=== PATIENT | female | born 1960 | race Caucasian/White ===

== ENCOUNTER 2016-11-02 17:06 | Inpatient (IN) | payer OTHER ==
[~2016-11-02] VITALS: Ht 160 cm; Wt 36.5 kg
[~2016-11-02 17:06] MED LIST: ALD25 PO; GAMMAGARD IV; MESTINON PO
[2016-11-02] MEDS ORDERED: [UNRECOGNIZED DRUG - OTHER] (17:37)
[2016-11-02] MEDS ORDERED: [UNRECOGNIZED DRUG - OTHER] (17:37)
[2016-11-02] MEDS ORDERED: MYCOC TOP (17:38)
[2016-11-02] MEDS ORDERED: TYLENOL (17:38)
[2016-11-02 17:52] LABS: BASOPHIL % 0.3 % (0-2)
[2016-11-02 17:58] LABS: CALCIUM 9.2 mg/dL (8.5-10.1); CARBON DIOXIDE 29.7 mmol/L (21-32); CHLORIDE SERUM 97 mmol/L (98-107); CREATININE SERUM 0.8 mg/dL (0.6-1.0); GFR1 > 60 mL/min; GLUCOSE SERUM 173 mg/dL (74-106); POTASSIUM SERUM 4.1 mmol/L (3.5-5.1); SODIUM SERUM 136 mmol/L (136-145)
[2016-11-02 18:00] LABS: PLATELET COUNT 549 x10^3mcL (130-400); RED CELL DISTRIBUTION WIDTH 18.2 % (11.5-14.5)
[2016-11-02 18:03] LABS: ALBUMIN 2.6 g/dL (3.4-5.0); ALKALINE PHOSPHATASE 127 U/L (46-116); ALT/SGPT 17 U/L (14-59); AST/SGOT 52 U/L (15-37); BILIRUBIN TOTAL 0.26 mg/dL (0.20-1.00); TOTAL PROTEIN, SERUM 9.1 g/dL (6.4-8.2)
[2016-11-02 18:14] LABS: CK-MB < 0.5 ng/mL (0-3.6); CREATINE KINASE 31 U/L (26-192)
[2016-11-02 19:41] VITALS: BP 107/56
[2016-11-02 21:13] VITALS: BP 110/75
[2016-11-03 06:21] VITALS: BP 120/61
[2016-11-03 07:19] LABS: BASOPHIL % 0.2 % (0-2)
[2016-11-03 07:27] LABS: CALCIUM 8.6 mg/dL (8.5-10.1); CARBON DIOXIDE 29.3 mmol/L (21-32); CHLORIDE SERUM 100 mmol/L (98-107); CREATININE SERUM 0.6 mg/dL (0.6-1.0); GFR1 > 60 mL/min; GLUCOSE SERUM 97 mg/dL (74-106); POTASSIUM SERUM 4.2 mmol/L (3.5-5.1); SODIUM SERUM 134 mmol/L (136-145)
[2016-11-03 07:36] LABS: PLATELET COUNT 433 x10^3mcL (130-400); RED CELL DISTRIBUTION WIDTH 18.3 % (11.5-14.5)
[2016-11-03 08:30] VITALS: Ht 160 cm; Wt 36.5 kg
[2016-11-03 10:09] VITALS: BP 108/58
[2016-11-03 17:14] VITALS: BP 101/54
[2016-11-03 20:20] VITALS: BP 96/50
[2016-11-03 20:23] VITALS: BP 141/52
[2016-11-04 06:13] VITALS: BP 104/65
[2016-11-04 07:05] LABS: CALCIUM 8.7 mg/dL (8.5-10.1); CARBON DIOXIDE 28.5 mmol/L (21-32); CHLORIDE SERUM 102 mmol/L (98-107); CREATININE SERUM 0.7 mg/dL (0.6-1.0); GFR1 > 60 mL/min; GLUCOSE SERUM 106 mg/dL (74-106); POTASSIUM SERUM 3.8 mmol/L (3.5-5.1); SODIUM SERUM 138 mmol/L (136-145)
[2016-11-04 08:10] LABS: BASOPHIL % 0.1 % (0-2)
[2016-11-04 08:11] LABS: PLATELET COUNT 535 x10^3mcL (130-400); RED CELL DISTRIBUTION WIDTH 18.2 % (11.5-14.5)
[2016-11-04 08:13] LABS: rbc morphology (normal/abnorm) ABNORMAL (NORMAL)
[2016-11-04 09:53] VITALS: BP 95/54
[2016-11-04 10:39] VITALS: BP 95/54
[2016-11-04 18:16] VITALS: BP 109/61
[2016-11-04 20:44] VITALS: BP 105/58
[2016-11-05 05:31] VITALS: BP 98/53
[2016-11-05 06:29] LABS: BASOPHIL % 0.2 % (0-2); PLATELET COUNT 399 x10^3mcL (130-400)
[2016-11-05 06:49] LABS: CALCIUM 8.5 mg/dL (8.5-10.1); CARBON DIOXIDE 25.5 mmol/L (21-32); CHLORIDE SERUM 103 mmol/L (98-107); CREATININE SERUM 0.5 mg/dL (0.6-1.0); GFR1 > 60 mL/min; GLUCOSE SERUM 102 mg/dL (74-106); MAGNESIUM 1.9 mg/dL (1.8-2.4); SODIUM SERUM 137 mmol/L (136-145)
[2016-11-05 07:16] LABS: RED CELL DISTRIBUTION WIDTH 18.4 % (11.5-14.5)
[2016-11-05 10:09] VITALS: BP 113/53
[2016-11-05 13:16] VITALS: BP 103/59
[2016-11-05 13:23] LABS: IMMUNOGLOBULIN A 938 mg/dL (87-352); IMMUNOGLOBULIN G (QUANT) 1989 mg/dL (700-1600); IMMUNOGLOBULIN M 103 mg/dL (26-217)
[2016-11-05 17:09] VITALS: BP 95/51
[2016-11-05 21:26] VITALS: BP 111/53
[2016-11-06 05:51] VITALS: BP 96/50
[2016-11-06 07:03] LABS: CALCIUM 8.9 mg/dL (8.5-10.1); CHLORIDE SERUM 101 mmol/L (98-107); CREATININE SERUM 0.7 mg/dL (0.6-1.0); GFR1 > 60 mL/min; GLUCOSE SERUM 96 mg/dL (74-106); POTASSIUM SERUM 4.2 mmol/L (3.5-5.1); SODIUM SERUM 138 mmol/L (136-145)
[2016-11-06 07:15] LABS: BASOPHIL % 0.3 % (0-2)
[2016-11-06 07:37] LABS: PLATELET COUNT 427 x10^3mcL (130-400); RED CELL DISTRIBUTION WIDTH 18.6 % (11.5-14.5)
[2016-11-06 10:12] VITALS: BP 101/64
[2016-11-06] MEDS ORDERED: LEVAQUIN750 MG PO (17:16)
[2016-11-06] MEDS ORDERED: PHECLUD PO (17:26)
[2016-11-06 17:44] VITALS: BP 105/52
[2016-11-06 17:55] VITALS: BP 105/52
== END 2016-11-06 18:53 | disposition home or self-care (01) | DRG 140 ==
LOC: ED 17:06 → MU 17:55 → DU 17:55 → MU 22:10
PROVIDERS: Emergency Medicine; Internal Medicine Pulmonary Disease; ADMIT Internal Medicine
DX: J47.1 Bronchiectasis with (acute) exacerbation (principal); K74.69 Other cirrhosis of liver; G70.00 Myasthenia gravis without (acute) exacerbation; E44.0 Moderate protein-calorie malnutrition; T45.1X5A Adverse effect of antineoplastic and immunosuppressive drugs, initial encounter; Y92.018 Other place in single-family (private) house as the place of occurrence of the external cause; Q89.2 Congenital malformations of other endocrine glands; J20.9 Acute bronchitis, unspecified
CPT/HCPCS: 36600; 83880; J0692; J1650; J7030; J7613

== ENCOUNTER 2016-12-06 13:06 | Inpatient (IN) | payer OTHER ==
[~2016-12-06] VITALS: Ht 160 cm; Wt 34.9 kg
[~2016-12-06 13:06] MED LIST changes: +LEVAQUIN750 MG PO; +MYCOC TOP; +PHECLUD PO; +TYLENOL; +[UNRECOGNIZED DRUG - OTHER]; +[UNRECOGNIZED DRUG - OTHER]
--- NOTE | 2016-12-06 13:31 | NUR ---
PT BROUGHT IN BY AMBULANCE FROM [facility] FOR COMPLAINT OF GENERALIZED WEAKNESS, HYPOTENSION AND LOW HGB. PT HAD [facility] APPOINTMENT TO DAY FOR LAB WORK. UPON RECEIVING RESULTS DR. WOODY CALLED 911 TO TRANSPORT PT. DUE TO LOW 02 SAT AND LAB RESULTS. PT DENIES ANY LIGHTHEADNESS, DIZZINESS OR CHEST PAIN. PT STATES SHE HAS HAD AN INCREASE IN WEAKNESS. PT AWAKE AND ALERT. ANSWERING ALL QUESTIONS. APROPRIATELY. PT PLACED ON CARDIAC MONITORS.
--- NOTE | 2016-12-06 14:14 | NUR ---
CIVIL ENGINEERING TECHNICIAN AT BEDSIDE FOR BLOOD DRAW
[2016-12-06 14:24] LABS: BASOPHIL % 0.1 % (0-2)
[2016-12-06 14:27] LABS: PLATELET COUNT 473 x10^3mcL (130-400); RED CELL DISTRIBUTION WIDTH 17.5 % (11.5-14.5)
[2016-12-06 14:32] LABS: CALCIUM 8.5 mg/dL (8.5-10.1); CARBON DIOXIDE 29.5 mmol/L (21-32); CHLORIDE SERUM 101 mmol/L (98-107); CREATININE SERUM 0.6 mg/dL (0.6-1.0); GFR1 > 60 mL/min; GLUCOSE SERUM 112 mg/dL (74-106); SODIUM SERUM 135 mmol/L (136-145)
[2016-12-06 14:39] LABS: ALKALINE PHOSPHATASE 90 U/L (46-116); ALT/SGPT 13 U/L (14-59); AST/SGOT 17 U/L (15-37); BILIRUBIN TOTAL 0.29 mg/dL (0.20-1.00); LIPASE 143 IU/L (73-393); TOTAL PROTEIN, SERUM 8.2 g/dL (6.4-8.2)
[2016-12-06 14:42] LABS: ALBUMIN 2.1 g/dL (3.4-5.0)
--- NOTE | 2016-12-06 16:21 | NUR ---
REPORT GIVEN TO LEILA RN IN [facility] FOR CONTINUITY OF CARE. REQUESTING TIME FROM TRANSFER DUE TO NEEDING TO DC ANOTHER PT FROM [facility]
--- NOTE | 2016-12-06 16:32 | NUR ---
EFRAÍN DEE RN: PT OK TO COME TO [facility]
[2016-12-06 16:47] VITALS: BP 94/48
--- NOTE | 2016-12-06 16:52 | NUR ---
REC'D AAOX4, SPEECH CLEAR. C/O SLIGHT DIZZINESS AND GENERALIZED WEAKNESS. ON RA, NO SOB NOTED. AMBULATORY WITH STEADY GAIT. IV SITE WNL NOT ON TELE. ORIENTED TO ROOM AND SURROUNDINGS. CALL LIGHT WITHIN REACH, PROVIDED REPORT TO LEILA RN FOR CONTINUITY OF CARE
--- NOTE | 2016-12-06 16:55 | NUR ---
DR. CHAUDHRY PAGED TO OBTAINE CLARIFICATION OF BLOOD TRANSFUSION ORDERS, MEDS AND MEDICATION ORDERS.
--- NOTE | 2016-12-06 17:06 | NUR ---
DR. PARRISH CALLED BACK CLARIFIED TRANSFUSION ORDER. STATED HE WANTED PT TO BE TRANSFUSED SOON POSSIBLE. DENIED NEED FOR PRE-TRANSFUSION MEDS. ORDERS ENTERED IN THE COMPUTER. WILL CONT TO MONITOR.
[2016-12-06 18:20] VITALS: BP 98/58
--- NOTE | 2016-12-06 18:37 | NUR ---
MADE AWARE BLOOD READY FOR TRANSFUSION. CHECKED VS, STABLE. PT'D BROUGHT OUTSIDE FOOD FOR PT AND IS EATING AT THIS TIME. PT REQUESTED FOR BLOOD TO BE STARTED IN A FEW MIN.
--- NOTE | 2016-12-06 19:05 | NUR ---
STARTED 1ST UNIT OF PRBC AT THIS. REVIEW POSSIBLE ADVERSE REACTION OF TRANSFUSION. WILL CONT TO MONITOR.
--- NOTE | 2016-12-06 19:20 | NUR ---
AFTER 15MIN OF TRANFUSION NO REACTION REPORTED. VSS. TRANSFUSION RATE INCREASED TO 100ML/HR. ENDORSE TO [facility].
--- NOTE | 2016-12-06 20:01 | NUR ---
RECEIVED REPORT FROM FERNANDO DEE. PT RESTING IN BED COMFORTABLY IN NO ACUTE DISTRESS OR DISCOMFORT. AAOX4. FIRST UNIT OF PRBC STARTED. PT STILL PRESENTING HYPOTENSION WITH LATEST BP OF 96/52, 90 HR. BLOOD TRANSFUSING AT 100CC/HR. WILL CONT TO MONITOR AND ADJUST RATE NECESSARY. M/S PT. DENIES OF ANY CHEST DISCOMFORT. PER PULSES MOD. NEG ON EDEMA. ON 2 L NC WITH SAT OF 97%. BREATHING EVENLY AND UNLABORED. NO SOB NOTED. LUNGS CTA. BS ACTIVE. PT HAS A G TUBE. ABD SOFT AND FLAT. LAST BM 12/05/16 FORMED STOOL WITH BLOOD PER PT. VOIDS FREELY. GEN WEAKNESS. SKIN WARM DRY AND INTACT. IV ON RAC PATENT. SAFETY MEASURES ENSURED. INSTRUCTED PT TO CALL FOR ANY NEEDS/ASSISTANCE. CALL LIGHT WITHIN REACH. WILL CONT TO MONITOR PT.
[2016-12-06 21:10] VITALS: BP 87/48
--- NOTE | 2016-12-06 21:30 | NUR ---
PT STARTED COMPLAINING OF NAUSEA. PT STATES SHE LOWERED THE HEAD OF THE BED AND FELT THE NEED TO BURP AND STARTED FEELING NAUSEOUS. PT DENIES OTHER ADVERSE REACTION SYMPTOMS. MADE DR OWENS AWARE AND ALSO LATEST BP OF 87/48, 87 HR. DENIES POWELL/DIZZINESS. PRESENTING WITH GEN WEAKNESS BUT AAOX4. DR ORDERED TO GIVE ZOFRAN PRN. SAFETY MEASURES ENSURED. CALL LIGHT WITHIN REACH. WILL CONT TO MONITOR PT.
--- NOTE | 2016-12-06 23:40 | NUR ---
SECOND UNIT OF PRBC TRANSFUSION STARTED. VS AT 95/45, 85 HR, 98.8 TEMP, 16 RR, 95% O2 SAT IN 2 L O2. WILL STAY AT THE BEDSIDE FOR CONT MONITORING.
--- NOTE | 2016-12-06 23:55 | NUR ---
POST 15 MIN TRANSFUSION VS AT 91/47, 85 HR, 98.7 TEMP, 16 RR, 97% O2 SAT IN 2 L NC. NO ADVERSE REACTION OCCURRED. EDUCATED PT TO INFORM ME IF SHE EXPERIENCE ANY SYMPTOMS. VERBALIZED UNDERSTANDING. AAOX4. SAFETY MEASURES ENSURED. CALL LIGHT WITHIN REACH. WILL CONT TO MONITOR PT.
--- NOTE | 2016-12-07 02:40 | NUR ---
SECOND UNIT OF PRBC FINISHED TRANSFUSING. NO ADVERSE REACTION DEVELOPED. VS AT 98.2 TEMP, 91 HR, 91/45, 17 RR, 95% O2 SAT IN 2 L NC. SAFETY MEASURES ENSURED. MENTIONED PT'S BASELINE RUNS ON THE LOW 90'S SYSTOLIC. PT AAOX4. CALL LIGHT WITHIN REACH. WILL CONT TO MONITOR. WILL HEPLOCK PT PER ORDER.
--- NOTE | 2016-12-07 05:05 | NUR ---
PT SLEPT COMFORTABLY AFTER BLOOD TRANSFUSION. INFORMED PT WE NEED PHLEGM SAMPLE FOR RESP CULTURE. LEFT SAMPLE CUP AT THE BEDSIDE. REMAINED AAOX4 THE WHOLE TIME. STILL PRESENTING WITH GEN WEAKNESS BUT OBEY COMMANDS AND THOUGHT PROCESS COHERENT. SAFETY MEASURES ENSURED. CALL LIGHT WITHIN REACH.
[2016-12-07 05:55] VITALS: BP 95/53
[2016-12-07 06:50] LABS: CALCIUM 8.6 mg/dL (8.5-10.1); CARBON DIOXIDE 29.9 mmol/L (21-32); CHLORIDE SERUM 101 mmol/L (98-107); CREATININE SERUM 0.6 mg/dL (0.6-1.0); GFR1 > 60 mL/min; GLUCOSE SERUM 89 mg/dL (74-106); MAGNESIUM 2.1 mg/dL (1.8-2.4); POTASSIUM SERUM 4.4 mmol/L (3.5-5.1); SODIUM SERUM 135 mmol/L (136-145)
[2016-12-07 06:51] LABS: TOTAL IRON BINDING CAPACITY 272 ug/dL (250-450)
[2016-12-07 07:11] LABS: BASOPHIL % 0.1 % (0-2); PLATELET COUNT 346 x10^3mcL (130-400); RED CELL DISTRIBUTION WIDTH 19.2 % (11.5-14.5)
[2016-12-07 07:13] LABS: rbc morphology (normal/abnorm) ABNORMAL (NORMAL)
[2016-12-07 07:19] LABS: IRON 211 ug/dL (50-170)
--- NOTE | 2016-12-07 07:20 | NUR ---
RECEIVED Pt. AAOX4. RESPIRATIONS EVEN AND UNLABORED. DENIES PAIN/DISOCOMFORT. NO DISTRESS NOTED. MEDSURG Pt. DENIES CHEST PAIN/PRESSURE. IV AT RIGHT AC SALINE LOCKED. G TUBE NOTED IN Pt. ABD. BED LOW/LOCKED. CALL LIGHT IN REACH. WILL CONTINUE TO MONTIOR.
--- NOTE | 2016-12-07 08:15 | NUR ---
MADE ROUNDS WITH DR. SALAZAR AND MEDICINE TEAM, Pt. POSSIBLE DISCHARGE TODAY AND AGREED WITH PLAN OF CARE.
--- NOTE | 2016-12-07 08:52 | NUR ---
Pt. C/O COUGHING NON PRODUCTIVE COUGH NOTED, PHENERGAN GIVEN WILL CONTINUE TO MONITOR.
[2016-12-07] MEDS ORDERED: NATURAL IRON65 MG PO (10:12)
[2016-12-07] MEDS ORDERED: NYSTATIN100000 U/M PO (10:25)
[2016-12-07 10:32] VITALS: BP 96/51
[2016-12-07 13:01] VITALS: BP 96/51
--- NOTE | 2016-12-07 13:54 | NUR ---
Pt. AAOX4, RESPIRATIONS EVEN AND UNLABORED. DENIES PAIN/DISCOMFORT. NO DISTRESS NOTED. ALL RX AND DISCHARGE INSTRUCTIONS EXPLAINED TO Pt. AND SPOUSE TAMI TARANGO AND VERBALIZED UNDERSTANDING. ALSO INSTRUCTED TO SEE PCP SOON POSSIBLE AND Pt. REPORTED Pt. HAS UPCOMING APPOINMENT WITH [facility]. IV AT RIGHT AC REMOVED WITH CATH INTACT. PRESSURE APPLIED AND NO BLEEDING NOTED. Pt. LEFT WITH ALL BELONGINGS TRANSPORTED BY Pt. SPOUSE VIA [employer]IVATE AUT[employer].
== END 2016-12-07 14:00 | disposition home or self-care (01) | DRG 663 ==
LOC: ED 13:06 → MU 15:08
PROVIDERS: Emergency Medicine; ADMIT Internal Medicine Pulmonary Disease
PROC: 30233N1 Transfusion of Nonautologous Red Blood Cells into Peripheral Vein, Percutaneous Approach (ICD-10-PCS; principal; 2016-12-06)
DX: D64.9 Anemia, unspecified (principal); J96.11 Chronic respiratory failure with hypoxia; D84.9 Immunodeficiency, unspecified; J47.9 Bronchiectasis, uncomplicated; K74.60 Unspecified cirrhosis of liver; Z90.3 Acquired absence of stomach [part of]; Z99.81 Dependence on supplemental oxygen; Z91.14 Patient's other noncompliance with medication regimen
CPT/HCPCS: 83880; J2405; J7050; P9016; Q0092

== ENCOUNTER 2018-03-22 20:24 | Emergency (ER) | payer OTHER ==
[~2018-03-22] VITALS: Ht 160 cm; Wt 36.5 kg
[~2018-03-22 20:24] MED LIST changes: +NATURAL IRON65 MG PO; +NYSTATIN100000 U/M PO
[2018-03-22 20:44] VITALS: Ht 160 cm; Wt 36.5 kg
[2018-03-23 01:08] VITALS: BP 103/56
== END 2018-03-23 01:08 | disposition home or self-care (01) ==
LOC: ED 20:24
DX: Z46.59 Encounter for fitting and adjustment of other gastrointestinal appliance and device (principal); Z87.19 Personal history of other diseases of the digestive system
CPT/HCPCS: Q0092; Q9966

== ENCOUNTER 2018-07-28 00:26 | Inpatient (IN) | payer OTHER ==
[~2018-07-28] VITALS: Ht 154.9 cm; Wt 41.1 kg
[~2018-07-28 00:26] MED LIST changes: +HIZENTRA SQ; -[UNRECOGNIZED DRUG - OTHER]
[2018-07-28 01:58] LABS: BASOPHIL % 0.1 % (0-2); PLATELET COUNT 341 x10^3mcL (130-400)
[2018-07-28 02:04] LABS: RED CELL DISTRIBUTION WIDTH 15.1 % (11.5-14.5)
[2018-07-28 02:06] LABS: CALCIUM 8.6 mg/dL (8.5-10.1); CARBON DIOXIDE 34.6 mmol/L (21-32); CHLORIDE SERUM 99 mmol/L (98-107); CREATININE SERUM 0.4 mg/dL (0.6-1.0); GFR1 > 60 mL/min; GLUCOSE SERUM 160 mg/dL (74-106); POTASSIUM SERUM 3.7 mmol/L (3.5-5.1); SODIUM SERUM 138 mmol/L (136-145)
[2018-07-28 02:11] LABS: ALBUMIN 2.3 g/dL (3.4-5.0); ALKALINE PHOSPHATASE 227 U/L (46-116); ALT/SGPT 32 U/L (14-59); AST/SGOT 36 U/L (15-37); BILIRUBIN TOTAL 0.17 mg/dL (0.20-1.00); TOTAL PROTEIN, SERUM 8.4 g/dL (6.4-8.2)
[2018-07-28 03:17] LABS: microscopic required? YES; urine erythrocyte TRACE (NEGATIVE)
[2018-07-28] MEDS ORDERED: ALBUTEROL SULFAT3 M3 (03:27)
[2018-07-28] MEDS ORDERED: PROTONIX20 MG (03:27)
[2018-07-28 04:56] VITALS: BP 97/41
[2018-07-28 06:00] VITALS: BP 97/41
[2018-07-28 09:09] VITALS: BP 92/49
[2018-07-28 14:07] VITALS: BP 96/47
[2018-07-28 16:39] VITALS: BP 99/46
[2018-07-28 21:18] VITALS: BP 103/52
[2018-07-29 04:45] VITALS: BP 122/51
[2018-07-29 05:37] VITALS: BP 122/51
[2018-07-29 06:23] LABS: ALKALINE PHOSPHATASE 182 U/L (46-116); ALT/SGPT 39 U/L (14-59); AST/SGOT 36 U/L (15-37); BILIRUBIN TOTAL 0.4 mg/dL (0.20-1.00); CALCIUM 8.8 mg/dL (8.5-10.1); CARBON DIOXIDE 36.3 mmol/L (21-32); CHLORIDE SERUM 102 mmol/L (98-107); CREATININE SERUM 0.6 mg/dL (0.6-1.0); GFR1 > 60 mL/min; GLUCOSE SERUM 113 mg/dL (74-106); MAGNESIUM 2.1 mg/dL (1.8-2.4); PHOSPHOROUS 3.7 mg/dL (2.5-4.9); SODIUM SERUM 139 mmol/L (136-145)
[2018-07-29 06:53] LABS: BASOPHIL % 0.2 % (0-2); PLATELET COUNT 230 x10^3mcL (130-400)
[2018-07-29 06:54] LABS: RED CELL DISTRIBUTION WIDTH 16.2 % (11.5-14.5)
[2018-07-29 07:24] VITALS: Ht 154.9 cm; Wt 41.1 kg
[2018-07-29 08:08] VITALS: BP 96/56
[2018-07-29 12:31] VITALS: BP 94/65
[2018-07-29 15:46] VITALS: BP 97/58
[2018-07-29 19:24] VITALS: BP 105/51
[2018-07-30] VITALS (8 sets, daily range): BP systolic 99–112; BP diastolic 49–57
[2018-07-30 05:05] LABS: BASOPHIL % 0.2 % (0-2); PLATELET COUNT 219 x10^3mcL (130-400); RED CELL DISTRIBUTION WIDTH 16.2 % (11.5-14.5)
[2018-07-30 05:07] LABS: ALKALINE PHOSPHATASE 166 U/L (46-116); ALT/SGPT 28 U/L (14-59); AST/SGOT 33 U/L (15-37); BILIRUBIN TOTAL 0.33 mg/dL (0.20-1.00); CALCIUM 8.7 mg/dL (8.5-10.1); CHLORIDE SERUM 102 mmol/L (98-107); CREATININE SERUM 0.6 mg/dL (0.6-1.0); GFR1 > 60 mL/min; GLUCOSE SERUM 157 mg/dL (74-106); MAGNESIUM 2.3 mg/dL (1.8-2.4); PHOSPHOROUS 3.4 mg/dL (2.5-4.9); POTASSIUM SERUM 3.6 mmol/L (3.5-5.1); SODIUM SERUM 141 mmol/L (136-145); TOTAL PROTEIN, SERUM 7.7 g/dL (6.4-8.2)
[2018-07-30 05:09] LABS: ALBUMIN 3.1 g/dL (3.4-5.0)
[2018-07-31 04:12] VITALS: BP 110/64
[2018-07-31 04:57] LABS: BASOPHIL % 0.2 % (0-2); PLATELET COUNT 216 x10^3mcL (130-400); RED CELL DISTRIBUTION WIDTH 16.3 % (11.5-14.5)
[2018-07-31 05:00] LABS: ALBUMIN 3.7 g/dL (3.4-5.0); ALKALINE PHOSPHATASE 133 U/L (46-116); ALT/SGPT 35 U/L (14-59); AST/SGOT 23 U/L (15-37); BILIRUBIN TOTAL 0.27 mg/dL (0.20-1.00); CARBON DIOXIDE 38.4 mmol/L (21-32); CHLORIDE SERUM 104 mmol/L (98-107); CREATININE SERUM 0.6 mg/dL (0.6-1.0); GFR1 > 60 mL/min; GLUCOSE SERUM 127 mg/dL (74-106); MAGNESIUM 2.3 mg/dL (1.8-2.4); PHOSPHOROUS 2.9 mg/dL (2.5-4.9); POTASSIUM SERUM 3.4 mmol/L (3.5-5.1); SODIUM SERUM 145 mmol/L (136-145)
[2018-07-31 07:35] VITALS: BP 102/52
[2018-07-31 11:30] VITALS: BP 107/61
[2018-07-31 18:50] VITALS: BP 105/58
[2018-07-31 21:21] VITALS: BP 102/64
[2018-08-01 05:25] VITALS: BP 98/48
[2018-08-01 07:42] LABS: ALBUMIN 3.7 g/dL (3.4-5.0); ALKALINE PHOSPHATASE 146 U/L (46-116); ALT/SGPT 33 U/L (14-59); AST/SGOT 19 U/L (15-37); BILIRUBIN TOTAL 0.3 mg/dL (0.20-1.00); CALCIUM 9.3 mg/dL (8.5-10.1); CARBON DIOXIDE 35.1 mmol/L (21-32); CHLORIDE SERUM 105 mmol/L (98-107); CREATININE SERUM 0.7 mg/dL (0.6-1.0); GFR1 > 60 mL/min; GLUCOSE SERUM 98 mg/dL (74-106); MAGNESIUM 2.5 mg/dL (1.8-2.4); POTASSIUM SERUM 3.9 mmol/L (3.5-5.1); SODIUM SERUM 144 mmol/L (136-145)
[2018-08-01 07:59] LABS: TOTAL PROTEIN, SERUM 8.7 g/dL (6.4-8.2)
[2018-08-01 08:04] LABS: BASOPHIL % 0.2 % (0-2); PLATELET COUNT 265 x10^3mcL (130-400)
[2018-08-01 08:05] LABS: RED CELL DISTRIBUTION WIDTH 15.7 % (11.5-14.5)
[2018-08-01 08:50] VITALS: BP 104/43
[2018-08-01 12:27] VITALS: BP 97/48
[2018-08-01 16:20] VITALS: BP 98/49
[2018-08-01 16:50] VITALS: BP 98/49
[2018-08-01 21:12] VITALS: BP 106/53
[2018-08-02 04:42] VITALS: BP 99/50
[2018-08-02 06:59] LABS: BASOPHIL % 0.3 % (0-2); PLATELET COUNT 332 x10^3mcL (130-400)
[2018-08-02 07:10] LABS: ALBUMIN 3.6 g/dL (3.4-5.0); ALKALINE PHOSPHATASE 154 U/L (46-116); ALT/SGPT 27 U/L (14-59); AST/SGOT 19 U/L (15-37); BILIRUBIN TOTAL 0.3 mg/dL (0.20-1.00); CARBON DIOXIDE 37.2 mmol/L (21-32); CHLORIDE SERUM 103 mmol/L (98-107); CREATININE SERUM 0.7 mg/dL (0.6-1.0); GFR1 > 60 mL/min; GLUCOSE SERUM 88 mg/dL (74-106); MAGNESIUM 2.3 mg/dL (1.8-2.4); PHOSPHOROUS 4.2 mg/dL (2.5-4.9); SODIUM SERUM 145 mmol/L (136-145)
[2018-08-02 07:12] LABS: RED CELL DISTRIBUTION WIDTH 15.9 % (11.5-14.5)
[2018-08-02 07:15] LABS: TOTAL PROTEIN, SERUM 8.3 g/dL (6.4-8.2)
[2018-08-02 08:24] VITALS: BP 105/51
[2018-08-02 12:20] VITALS: BP 107/63
[2018-08-02 16:52] VITALS: BP 112/67
[2018-08-02 20:52] VITALS: BP 100/41
[2018-08-03 05:50] VITALS: BP 90/45
[2018-08-03 07:29] LABS: ALBUMIN 3.4 g/dL (3.4-5.0); ALKALINE PHOSPHATASE 131 U/L (46-116); ALT/SGPT 28 U/L (14-59); AST/SGOT 20 U/L (15-37); BILIRUBIN TOTAL 0.29 mg/dL (0.20-1.00); CALCIUM 9.3 mg/dL (8.5-10.1); CARBON DIOXIDE 36.8 mmol/L (21-32); CHLORIDE SERUM 103 mmol/L (98-107); CREATININE SERUM 0.7 mg/dL (0.6-1.0); GFR1 > 60 mL/min; GLUCOSE SERUM 94 mg/dL (74-106); POTASSIUM SERUM 3.7 mmol/L (3.5-5.1); SODIUM SERUM 145 mmol/L (136-145); TOTAL PROTEIN, SERUM 8.5 g/dL (6.4-8.2)
[2018-08-03 07:37] LABS: BASOPHIL % 0.1 % (0-2); PLATELET COUNT 281 x10^3mcL (130-400)
[2018-08-03 11:00] VITALS: BP 95/48
[2018-08-03 17:32] VITALS: BP 95/45
[2018-08-03 21:23] VITALS: BP 104/52
[2018-08-04 05:06] VITALS: BP 108/44
[2018-08-04 09:08] VITALS: BP 104/56
[2018-08-04 09:59] VITALS: BP 104/56
[2018-08-04 12:35] VITALS: BP 93/51
[2018-08-04] MEDS ORDERED: LEVAQUIN750 MG PO (15:58)
[2018-08-04 16:05] VITALS: BP 93/51
[2018-08-04 16:54] VITALS: BP 101/48
== END 2018-08-04 18:29 | disposition home or self-care (01) | DRG 720 ==
LOC: ED 00:26 → DU 02:31 → IC 02:31 → DU 04:20 → IC 07-29 05:37 → DU 07-31 18:04
PROVIDERS: Emergency Medicine; Internal Medicine; Internal Medicine Pulmonary Disease; ADMIT Internal Medicine Pulmonary Disease
PROC: 5A09357 Assistance with Respiratory Ventilation, Less than 24 Consecutive Hours, Continuous Positive Airway Pressure (ICD-10-PCS; principal; 2018-07-29)
PROC: 5A09357 Assistance with Respiratory Ventilation, Less than 24 Consecutive Hours, Continuous Positive Airway Pressure (ICD-10-PCS; 2018-07-30)
DX: A41.9 Sepsis, unspecified organism (principal); J96.21 Acute and chronic respiratory failure with hypoxia; E43 Unspecified severe protein-calorie malnutrition; J18.9 Pneumonia, unspecified organism; K74.60 Unspecified cirrhosis of liver; D89.9 Disorder involving the immune mechanism, unspecified; J96.22 Acute and chronic respiratory failure with hypercapnia; R62.7 Adult failure to thrive; E87.6 Hypokalemia; J44.0 Chronic obstructive pulmonary disease with (acute) lower respiratory infection; R53.81 Other malaise; T45.1X5A Adverse effect of antineoplastic and immunosuppressive drugs, initial encounter; Z93.1 Gastrostomy status; Z68.1 Body mass index [BMI] 19.9 or less, adult; Y92.018 Other place in single-family (private) house as the place of occurrence of the external cause
CPT/HCPCS: 36600; 83880; 92526-GN; 92610; 97110-GP; 97116-GP; 97530-GP; C9113; J0456; J0696; J1120; J1650; J1956; J2270; J2405; J2543; J3490; J7030; J7040; J7050; J7613; P9047; Q0092

== ENCOUNTER 2018-11-07 19:06 | Emergency (ER) | payer OTHER ==
[~2018-11-07] VITALS: Ht 157.5 cm; Wt 35.8 kg
[~2018-11-07 19:06] MED LIST changes: +ALBUTEROL SULFAT3 M3; +PROTONIX20 MG
[2018-11-07 19:20] VITALS: Ht 157.5 cm; Wt 35.8 kg
[2018-11-07 20:17] VITALS: BP 116/66
== END 2018-11-07 20:17 | disposition home or self-care (01) ==
LOC: ED 19:06
DX: Z45.2 Encounter for adjustment and management of vascular access device (principal); M79.632 Pain in left forearm; J44.9 Chronic obstructive pulmonary disease, unspecified; Z98.890 Other specified postprocedural states

== ENCOUNTER 2020-06-09 12:00 | Inpatient (IN) | payer OTHER, SELFPAY ==
[~2020-06-09] VITALS: Ht 165.1 cm; Wt 39.6 kg
[2020-06-09 12:32] VITALS: Ht 165.1 cm; Wt 39.6 kg
[2020-06-09 14:34] LABS: BASOPHIL % 0.3 % (0.2-1.3); PLATELET COUNT 171 x10^3mcL (179-408)
[2020-06-09 14:36] LABS: RED CELL DISTRIBUTION WIDTH 15.3 % (12.3-17.7)
[2020-06-09 14:55] LABS: CALCIUM 9.7 mg/dL (8.5-10.1); CARBON DIOXIDE 38.8 mmol/L (21-32); CHLORIDE SERUM 98 mmol/L (98-107); CREATININE SERUM 0.6 mg/dL (0.6-1.0); GFR1 > 60 mL/min; GLUCOSE SERUM 115 mg/dL (74-106); SODIUM SERUM 142 mmol/L (136-145)
[2020-06-09 15:01] LABS: ALKALINE PHOSPHATASE 82 U/L (46-116); ALT/SGPT 22 U/L (14-59); AST/SGOT 19 U/L (15-37); BILIRUBIN TOTAL 0.45 mg/dL (0.20-1.00); C REACTIVE PROTEIN 14.9 mg/dL (<=0.9); LACTIC DEHYDROGENASE (LDH) 61 U/L (100-190); TOTAL PROTEIN, SERUM 9.5 g/dL (6.4-8.2)
[2020-06-09 16:50] VITALS: BP 107/35
[2020-06-09 17:50] VITALS: BP 92/37
[2020-06-09 21:46] VITALS: BP 113/49
[2020-06-10 06:13] VITALS: BP 103/49
[2020-06-10 06:36] LABS: microscopic required? NO
[2020-06-10 07:20] LABS: BASOPHIL % 0.3 % (0.2-1.3)
[2020-06-10 07:36] LABS: UA SPECIFIC GRAVITY >=1.030 (1.005-1.035); urine erythrocyte NEGATIVE (NEGATIVE)
[2020-06-10 07:56] LABS: PLATELET COUNT 115 x10^3mcL (179-408); RED CELL DISTRIBUTION WIDTH 15.2 % (12.3-17.7)
[2020-06-10 08:20] LABS: ALKALINE PHOSPHATASE 71 U/L (46-116); ALT/SGPT 26 U/L (14-59); AST/SGOT 28 U/L (15-37); BILIRUBIN TOTAL 0.4 mg/dL (0.20-1.00); CALCIUM 8.4 mg/dL (8.5-10.1); CARBON DIOXIDE 34.3 mmol/L (21-32); CHLORIDE SERUM 103 mmol/L (98-107); CREATININE SERUM 0.4 mg/dL (0.6-1.0); GFR1 > 60 mL/min; GLUCOSE SERUM 96 mg/dL (74-106); MAGNESIUM 1.9 mg/dL (1.8-2.4); POTASSIUM SERUM 4.5 mmol/L (3.5-5.1); SODIUM SERUM 143 mmol/L (136-145); TOTAL PROTEIN, SERUM 7.2 g/dL (6.4-8.2)
[2020-06-10 08:23] LABS: ALBUMIN 2.5 g/dL (3.4-5.0)
[2020-06-10 09:11] VITALS: BP 107/49
[2020-06-10 12:29] VITALS: BP 102/52
[2020-06-10 16:46] VITALS: BP 106/52
[2020-06-10 21:58] VITALS: BP 100/59
[2020-06-11] VITALS (14 sets, daily range): BP systolic 76–122; BP diastolic 35–69
[2020-06-11 06:44] LABS: BASOPHIL % 0.1 % (0.2-1.3); PLATELET COUNT 174 x10^3mcL (179-408)
[2020-06-11 07:33] LABS: ALKALINE PHOSPHATASE 79 U/L (46-116); ALT/SGPT 28 U/L (14-59); AST/SGOT 26 U/L (15-37); BILIRUBIN TOTAL 0.2 mg/dL (0.20-1.00); CALCIUM 8.9 mg/dL (8.5-10.1); CHLORIDE SERUM 103 mmol/L (98-107); CREATININE SERUM 0.4 mg/dL (0.6-1.0); GFR1 > 60 mL/min; GLUCOSE SERUM 131 mg/dL (74-106); MAGNESIUM 2.1 mg/dL (1.8-2.4); POTASSIUM SERUM 4.7 mmol/L (3.5-5.1); SODIUM SERUM 143 mmol/L (136-145); TOTAL PROTEIN, SERUM 7.9 g/dL (6.4-8.2)
[2020-06-11 07:34] LABS: ALBUMIN 2.3 g/dL (3.4-5.0)
[2020-06-11 07:36] LABS: CARBON DIOXIDE 42.1 mmol/L (21-32)
[2020-06-11 07:55] LABS: RED CELL DISTRIBUTION WIDTH 15.4 % (12.3-17.7)
[2020-06-12] VITALS (10 sets, daily range): BP systolic 93–109; BP diastolic 47–59
[2020-06-12 07:23] LABS: CARBON DIOXIDE 36.8 mmol/L (21-32); CHLORIDE SERUM 104 mmol/L (98-107); POTASSIUM SERUM 3.4 mmol/L (3.5-5.1); SODIUM SERUM 142 mmol/L (136-145)
[2020-06-12 07:52] LABS: ALKALINE PHOSPHATASE 52 U/L (46-116); ALT/SGPT 19 U/L (14-59); AST/SGOT 15 U/L (15-37); BILIRUBIN TOTAL 0.27 mg/dL (0.20-1.00); CALCIUM 8.4 mg/dL (8.5-10.1); CREATININE SERUM 0.4 mg/dL (0.6-1.0); GFR1 > 60 mL/min; GLUCOSE SERUM 171 mg/dL (74-106); MAGNESIUM 1.8 mg/dL (1.8-2.4)
[2020-06-12 07:54] LABS: ALBUMIN 1.7 g/dL (3.4-5.0); TOTAL PROTEIN, SERUM 6.1 g/dL (6.4-8.2)
[2020-06-12 13:15] LABS: BASOPHIL % 0.2 % (0.2-1.3)
[2020-06-12 13:27] LABS: PLATELET COUNT 115 x10^3mcL (179-408); RED CELL DISTRIBUTION WIDTH 15.2 % (12.3-17.7)
[2020-06-13] VITALS (9 sets, daily range): BP systolic 103–127; BP diastolic 54–65
[2020-06-13 07:43] LABS: ALKALINE PHOSPHATASE 58 U/L (46-116); ALT/SGPT 18 U/L (14-59); AST/SGOT 12 U/L (15-37); BILIRUBIN TOTAL 0.28 mg/dL (0.20-1.00); CALCIUM 8.9 mg/dL (8.5-10.1); CARBON DIOXIDE 37.9 mmol/L (21-32); CHLORIDE SERUM 105 mmol/L (98-107); CREATININE SERUM 0.4 mg/dL (0.6-1.0); GFR1 > 60 mL/min; GLUCOSE SERUM 157 mg/dL (74-106); POTASSIUM SERUM 3.5 mmol/L (3.5-5.1); SODIUM SERUM 143 mmol/L (136-145); TOTAL PROTEIN, SERUM 6.3 g/dL (6.4-8.2)
[2020-06-13 07:44] LABS: ALBUMIN 2.2 g/dL (3.4-5.0)
[2020-06-13 08:04] LABS: BASOPHIL % 0.2 % (0.2-1.3); PLATELET COUNT 139 x10^3mcL (179-408)
[2020-06-13 08:06] LABS: RED CELL DISTRIBUTION WIDTH 15.2 % (12.3-17.7)
[2020-06-14 00:21] VITALS: BP 116/59
[2020-06-14 02:50] VITALS: BP 113/61
[2020-06-14 04:00] VITALS: BP 120/59
[2020-06-14 06:00] LABS: BASOPHIL % 0.2 % (0.2-1.3); PLATELET COUNT 161 x10^3mcL (179-408)
[2020-06-14 06:20] LABS: ALKALINE PHOSPHATASE 61 U/L (46-116); ALT/SGPT 15 U/L (14-59); AST/SGOT 12 U/L (15-37); BILIRUBIN TOTAL 0.4 mg/dL (0.20-1.00); CHLORIDE SERUM 106 mmol/L (98-107); CREATININE SERUM 0.3 mg/dL (0.6-1.0); GFR1 > 60 mL/min; GLUCOSE SERUM 144 mg/dL (74-106); MAGNESIUM 1.8 mg/dL (1.8-2.4); POTASSIUM SERUM 3.5 mmol/L (3.5-5.1); RED CELL DISTRIBUTION WIDTH 15.4 % (12.3-17.7); SODIUM SERUM 146 mmol/L (136-145); TOTAL PROTEIN, SERUM 6.1 g/dL (6.4-8.2)
[2020-06-14 09:20] VITALS: BP 142/80
[2020-06-14 14:10] VITALS: BP 101/56
[2020-06-14 21:00] VITALS: BP 90/65
[2020-06-15] VITALS (8 sets, daily range): BP systolic 98–127; BP diastolic 51–67
[2020-06-15 10:35] LABS: BASOPHIL % 0.3 % (0.2-1.3); PLATELET COUNT 158 x10^3mcL (179-408)
[2020-06-15 10:48] LABS: RED CELL DISTRIBUTION WIDTH 15.6 % (12.3-17.7)
[2020-06-15 11:31] LABS: CALCIUM 8.9 mg/dL (8.5-10.1); CARBON DIOXIDE 37.3 mmol/L (21-32); CHLORIDE SERUM 104 mmol/L (98-107); CREATININE SERUM 0.4 mg/dL (0.6-1.0); GFR1 > 60 mL/min; GLUCOSE SERUM 112 mg/dL (74-106); POTASSIUM SERUM 3.5 mmol/L (3.5-5.1); SODIUM SERUM 146 mmol/L (136-145)
[2020-06-16] VITALS (13 sets, daily range): BP systolic 90–138; BP diastolic 42–66
[2020-06-16 06:39] LABS: PLATELET COUNT 174 x10^3mcL (179-408)
[2020-06-16 06:44] LABS: BASOPHIL % 0 % (0.2-1.3); RED CELL DISTRIBUTION WIDTH 15.5 % (12.3-17.7)
[2020-06-16 06:57] LABS: ALKALINE PHOSPHATASE 52 U/L (46-116); ALT/SGPT 15 U/L (14-59); AST/SGOT 13 U/L (15-37); BILIRUBIN TOTAL 0.3 mg/dL (0.20-1.00); CALCIUM 7.7 mg/dL (8.5-10.1); CHLORIDE SERUM 104 mmol/L (98-107); CREATININE SERUM 0.2 mg/dL (0.6-1.0); GFR1 > 60 mL/min; GLUCOSE SERUM 105 mg/dL (74-106); POTASSIUM SERUM 3.4 mmol/L (3.5-5.1); SODIUM SERUM 141 mmol/L (136-145)
[2020-06-16 07:34] LABS: ALBUMIN 1.7 g/dL (3.4-5.0); TOTAL PROTEIN, SERUM 5.5 g/dL (6.4-8.2)
[2020-06-16 07:35] LABS: CARBON DIOXIDE 40.4 mmol/L (21-32)
[2020-06-17] VITALS (20 sets, daily range): BP systolic 96–136; BP diastolic 44–69
[2020-06-17 06:16] LABS: BASOPHIL % 0.1 % (0.2-1.3)
[2020-06-17 06:17] LABS: ALKALINE PHOSPHATASE 75 U/L (46-116); ALT/SGPT 14 U/L (14-59); AST/SGOT 11 U/L (15-37); BILIRUBIN TOTAL 0.31 mg/dL (0.20-1.00); CALCIUM 8.4 mg/dL (8.5-10.1); CARBON DIOXIDE 38.5 mmol/L (21-32); CHLORIDE SERUM 102 mmol/L (98-107); CREATININE SERUM 0.4 mg/dL (0.6-1.0); GFR1 > 60 mL/min; GLUCOSE SERUM 192 mg/dL (74-106); POTASSIUM SERUM 4.1 mmol/L (3.5-5.1); SODIUM SERUM 139 mmol/L (136-145)
[2020-06-17 06:21] LABS: ALBUMIN 1.9 g/dL (3.4-5.0)
[2020-06-17 07:16] LABS: PLATELET COUNT 404 x10^3mcL (179-408); RED CELL DISTRIBUTION WIDTH 15.4 % (12.3-17.7)
[2020-06-18] VITALS (10 sets, daily range): BP systolic 100–125; BP diastolic 20–52
[2020-06-18 06:16] LABS: BASOPHIL % 0.1 % (0.2-1.3); PLATELET COUNT 340 x10^3mcL (179-408); RED CELL DISTRIBUTION WIDTH 15.3 % (12.3-17.7)
[2020-06-18 06:42] LABS: ALKALINE PHOSPHATASE 69 U/L (46-116); ALT/SGPT 14 U/L (14-59); AST/SGOT 14 U/L (15-37); BILIRUBIN TOTAL 0.3 mg/dL (0.20-1.00); CALCIUM 7.5 mg/dL (8.5-10.1); CARBON DIOXIDE 39.4 mmol/L (21-32); CHLORIDE SERUM 101 mmol/L (98-107); CREATININE SERUM 0.3 mg/dL (0.6-1.0); GFR1 > 60 mL/min; GLUCOSE SERUM 204 mg/dL (74-106); POTASSIUM SERUM 3.3 mmol/L (3.5-5.1); SODIUM SERUM 141 mmol/L (136-145)
[2020-06-18 07:05] LABS: ALBUMIN 1.7 g/dL (3.4-5.0); TOTAL PROTEIN, SERUM 5.8 g/dL (6.4-8.2)
[2020-06-19] VITALS (14 sets, daily range): BP systolic 97–122; BP diastolic 44–66
[2020-06-19 06:40] LABS: BASOPHIL % 0.1 % (0.2-1.3); PLATELET COUNT 395 x10^3mcL (179-408)
[2020-06-19 06:50] LABS: ALKALINE PHOSPHATASE 73 U/L (46-116); ALT/SGPT 14 U/L (14-59); AST/SGOT 14 U/L (15-37); BILIRUBIN TOTAL 0.25 mg/dL (0.20-1.00); CALCIUM 8.4 mg/dL (8.5-10.1); CARBON DIOXIDE 37.6 mmol/L (21-32); CHLORIDE SERUM 102 mmol/L (98-107); CREATININE SERUM 0.3 mg/dL (0.6-1.0); GFR1 > 60 mL/min; GLUCOSE SERUM 157 mg/dL (74-106); POTASSIUM SERUM 3.9 mmol/L (3.5-5.1); SODIUM SERUM 138 mmol/L (136-145); TOTAL PROTEIN, SERUM 6.3 g/dL (6.4-8.2)
[2020-06-19 06:54] LABS: ALBUMIN 1.8 g/dL (3.4-5.0)
[2020-06-19 07:18] LABS: RED CELL DISTRIBUTION WIDTH 15.8 % (12.3-17.7)
[2020-06-20] VITALS (13 sets, daily range): BP systolic 91–133; BP diastolic 38–58
[2020-06-20 06:26] LABS: BASOPHIL % 0.1 % (0.2-1.3)
[2020-06-20 06:46] LABS: PLATELET COUNT 452 x10^3mcL (179-408); RED CELL DISTRIBUTION WIDTH 15.8 % (12.3-17.7)
[2020-06-20 07:03] LABS: ALKALINE PHOSPHATASE 86 U/L (46-116); ALT/SGPT 18 U/L (14-59); AST/SGOT 14 U/L (15-37); BILIRUBIN TOTAL 0.2 mg/dL (0.20-1.00); CALCIUM 8.2 mg/dL (8.5-10.1); CARBON DIOXIDE 39.2 mmol/L (21-32); CHLORIDE SERUM 100 mmol/L (98-107); CREATININE SERUM 0.4 mg/dL (0.6-1.0); GFR1 > 60 mL/min; GLUCOSE SERUM 209 mg/dL (74-106); POTASSIUM SERUM 3.6 mmol/L (3.5-5.1); SODIUM SERUM 135 mmol/L (136-145)
[2020-06-20 07:05] LABS: ALBUMIN 1.7 g/dL (3.4-5.0)
[2020-06-21 03:34] VITALS: BP 114/49
[2020-06-21 06:00] VITALS: BP 125/51
[2020-06-21 06:39] LABS: PLATELET COUNT 283 x10^3mcL (179-408)
[2020-06-21 07:23] LABS: CALCIUM 8.1 mg/dL (8.5-10.1); CHLORIDE SERUM 100 mmol/L (98-107); CREATININE SERUM 0.3 mg/dL (0.6-1.0); GFR1 > 60 mL/min; GLUCOSE SERUM 122 mg/dL (74-106); POTASSIUM SERUM 3.6 mmol/L (3.5-5.1); SODIUM SERUM 143 mmol/L (136-145)
[2020-06-21 07:25] LABS: CARBON DIOXIDE 41.4 mmol/L (21-32)
[2020-06-21 07:34] LABS: RED CELL DISTRIBUTION WIDTH 15.6 % (12.3-17.7)
[2020-06-21 08:30] VITALS: BP 92/44
[2020-06-21 12:30] VITALS: BP 113/42
[2020-06-21 12:51] LABS: BAND NEUTROPHIL 2 % (0-10); MONOCYTE 3 % (0-7); SEGMENTED NEUTROPHILS 93 % (37-75); rbc morphology (normal/abnorm) ABNORMAL (NORMAL)
[2020-06-21 12:52] LABS: PLATELET MORPHOLOGY PLATELETS NORMAL
[2020-06-21 16:15] VITALS: BP 108/46
[2020-06-21 20:00] VITALS: BP 99/41
[2020-06-22] VITALS: BP 103/39
[2020-06-22 04:00] VITALS: BP 102/45
[2020-06-22 07:07] LABS: PLATELET COUNT 318 x10^3mcL (179-408)
[2020-06-22 07:08] LABS: CALCIUM 8.4 mg/dL (8.5-10.1); CHLORIDE SERUM 104 mmol/L (98-107); CREATININE SERUM 0.3 mg/dL (0.6-1.0); GFR1 > 60 mL/min; GLUCOSE SERUM 158 mg/dL (74-106); POTASSIUM SERUM 3.9 mmol/L (3.5-5.1); SODIUM SERUM 144 mmol/L (136-145)
[2020-06-22 07:19] LABS: CARBON DIOXIDE 43.2 mmol/L (21-32)
[2020-06-22 08:00] VITALS: BP 106/48
[2020-06-22 08:01] LABS: BASOPHIL % 0 % (0.2-1.3); RED CELL DISTRIBUTION WIDTH 16.1 % (12.3-17.7)
[2020-06-22 12:00] VITALS: BP 113/47
[2020-06-22 16:00] VITALS: BP 112/51
[2020-06-22 20:00] VITALS: BP 108/50; BP 113/52
[2020-06-23] VITALS (7 sets, daily range): BP systolic 94–114; BP diastolic 40–50
[2020-06-23 06:02] LABS: BASOPHIL % 0.2 % (0.2-1.3); PLATELET COUNT 243 x10^3mcL (179-408)
[2020-06-23 06:11] LABS: CALCIUM 8.6 mg/dL (8.5-10.1); CHLORIDE SERUM 105 mmol/L (98-107); CREATININE SERUM 0.4 mg/dL (0.6-1.0); GFR1 > 60 mL/min; GLUCOSE SERUM 273 mg/dL (74-106); SODIUM SERUM 145 mmol/L (136-145)
[2020-06-23 06:15] LABS: CARBON DIOXIDE > 45.0 mmol/L (21-32)
[2020-06-23 06:33] LABS: RED CELL DISTRIBUTION WIDTH 16.9 % (12.3-17.7)
[2020-06-23 09:13] LABS: rbc morphology (normal/abnorm) NORMAL (NORMAL)
[2020-06-24] VITALS (10 sets, daily range): BP systolic 107–146; BP diastolic 17–66
[2020-06-24 06:07] LABS: BASOPHIL % 0.1 % (0.2-1.3)
[2020-06-24 06:08] LABS: PLATELET COUNT 255 x10^3mcL (179-408)
[2020-06-24 06:12] LABS: RED CELL DISTRIBUTION WIDTH 16.3 % (12.3-17.7)
[2020-06-25] VITALS (9 sets, daily range): BP systolic 110–146; BP diastolic 58–69
[2020-06-25 05:36] LABS: BASOPHIL % 0.1 % (0.2-1.3); PLATELET COUNT 190 x10^3mcL (179-408)
[2020-06-25 05:56] LABS: ALKALINE PHOSPHATASE 80 U/L (46-116); ALT/SGPT 17 U/L (14-59); AST/SGOT 13 U/L (15-37); BILIRUBIN TOTAL 0.3 mg/dL (0.20-1.00); CALCIUM 7.9 mg/dL (8.5-10.1); CHLORIDE SERUM 102 mmol/L (98-107); CREATININE SERUM 0.3 mg/dL (0.6-1.0); GFR1 > 60 mL/min; GLUCOSE SERUM 174 mg/dL (74-106); POTASSIUM SERUM 4.1 mmol/L (3.5-5.1); SODIUM SERUM 141 mmol/L (136-145); TOTAL PROTEIN, SERUM 6.2 g/dL (6.4-8.2)
[2020-06-25 06:03] LABS: RED CELL DISTRIBUTION WIDTH 16.8 % (12.3-17.7)
[2020-06-25 06:15] LABS: ALBUMIN 2.2 g/dL (3.4-5.0); CARBON DIOXIDE 43.4 mmol/L (21-32)
[2020-06-26] VITALS (11 sets, daily range): BP systolic 127–162; BP diastolic 59–81
[2020-06-26 06:39] LABS: PLATELET COUNT 155 x10^3mcL (179-408)
[2020-06-26 07:09] LABS: ALKALINE PHOSPHATASE 66 U/L (46-116); ALT/SGPT 14 U/L (14-59); AST/SGOT 11 U/L (15-37); BILIRUBIN TOTAL 0.3 mg/dL (0.20-1.00); CALCIUM 8.3 mg/dL (8.5-10.1); CHLORIDE SERUM 104 mmol/L (98-107); CREATININE SERUM 0.2 mg/dL (0.6-1.0); GFR1 > 60 mL/min; GLUCOSE SERUM 117 mg/dL (74-106); POTASSIUM SERUM 4.2 mmol/L (3.5-5.1); SODIUM SERUM 143 mmol/L (136-145)
[2020-06-26 07:10] LABS: BASOPHIL % 0 % (0.2-1.3); RED CELL DISTRIBUTION WIDTH 16.6 % (12.3-17.7)
[2020-06-26 07:21] LABS: ALBUMIN 1.8 g/dL (3.4-5.0); TOTAL PROTEIN, SERUM 5.5 g/dL (6.4-8.2)
[2020-06-26 07:26] LABS: CARBON DIOXIDE 43.8 mmol/L (21-32)
[2020-06-27] VITALS (8 sets, daily range): BP systolic 104–174; BP diastolic 51–87
[2020-06-27 06:51] LABS: BASOPHIL % 0.1 % (0.2-1.3); PLATELET COUNT 166 x10^3mcL (179-408)
[2020-06-27 06:54] LABS: RED CELL DISTRIBUTION WIDTH 16.9 % (12.3-17.7)
[2020-06-27 07:30] LABS: ALKALINE PHOSPHATASE 78 U/L (46-116); ALT/SGPT 15 U/L (14-59); AST/SGOT 14 U/L (15-37); BILIRUBIN TOTAL 0.16 mg/dL (0.20-1.00); CALCIUM 8.2 mg/dL (8.5-10.1); CHLORIDE SERUM 104 mmol/L (98-107); CREATININE SERUM 0.3 mg/dL (0.6-1.0); GFR1 > 60 mL/min; GLUCOSE SERUM 199 mg/dL (74-106); POTASSIUM SERUM 4.1 mmol/L (3.5-5.1); SODIUM SERUM 141 mmol/L (136-145)
[2020-06-27 07:43] LABS: ALBUMIN 1.8 g/dL (3.4-5.0); CARBON DIOXIDE 41.2 mmol/L (21-32); TOTAL PROTEIN, SERUM 5.7 g/dL (6.4-8.2)
[2020-06-28] VITALS (12 sets, daily range): BP systolic 84–136; BP diastolic 42–57
[2020-06-28 06:22] LABS: BASOPHIL % 0 % (0.2-1.3); PLATELET COUNT 127 x10^3mcL (179-408); RED CELL DISTRIBUTION WIDTH 16.7 % (12.3-17.7)
[2020-06-28 06:25] LABS: ALKALINE PHOSPHATASE 67 U/L (46-116); ALT/SGPT 14 U/L (14-59); AST/SGOT 10 U/L (15-37); BILIRUBIN TOTAL 0.19 mg/dL (0.20-1.00); CALCIUM 8.6 mg/dL (8.5-10.1); CHLORIDE SERUM 104 mmol/L (98-107); CREATININE SERUM 0.3 mg/dL (0.6-1.0); GFR1 > 60 mL/min; GLUCOSE SERUM 188 mg/dL (74-106); MAGNESIUM 2.1 mg/dL (1.8-2.4); SODIUM SERUM 143 mmol/L (136-145)
[2020-06-28 07:23] LABS: ALBUMIN 1.7 g/dL (3.4-5.0); CARBON DIOXIDE > 45.0 mmol/L (21-32); TOTAL PROTEIN, SERUM 5.7 g/dL (6.4-8.2)
[2020-06-28] MEDS ORDERED: DIF100 GT (12:00)
[2020-06-28] MEDS ORDERED: LOV30I SC (12:01)
[2020-06-28] MEDS ORDERED: PROA PO (12:01)
[2020-06-28] MEDS ORDERED: VENTOLIN H0.09 MG/A1 INH (12:01)
[2020-06-28] MEDS ORDERED: TYL325 PO (12:02)
[2020-06-28] MEDS ORDERED: SOL40I IV (12:03)
[2020-06-28] MEDS ORDERED: QUETIAPINE FUMA25 M1 GT (12:03)
[2020-06-28] MEDS ORDERED: REG10I IV (12:03)
[2020-06-28] MEDS ORDERED: ZOFI IV (12:03)
[2020-06-29] VITALS (11 sets, daily range): BP systolic 100–142; BP diastolic 46–73
[2020-06-29 05:42] LABS: BASOPHIL % 0.1 % (0.2-1.3); PLATELET COUNT 135 x10^3mcL (179-408)
[2020-06-29 06:03] LABS: RED CELL DISTRIBUTION WIDTH 17.2 % (12.3-17.7)
[2020-06-29 06:09] LABS: ALKALINE PHOSPHATASE 70 U/L (46-116); ALT/SGPT 21 U/L (14-59); AST/SGOT 8 U/L (15-37); BILIRUBIN TOTAL 0.17 mg/dL (0.20-1.00); CALCIUM 8.3 mg/dL (8.5-10.1); CHLORIDE SERUM 103 mmol/L (98-107); CREATININE SERUM 0.3 mg/dL (0.6-1.0); GFR1 > 60 mL/min; GLUCOSE SERUM 166 mg/dL (74-106); POTASSIUM SERUM 3.7 mmol/L (3.5-5.1); SODIUM SERUM 140 mmol/L (136-145)
[2020-06-29 06:11] LABS: ALBUMIN 1.7 g/dL (3.4-5.0); TOTAL PROTEIN, SERUM 5.5 g/dL (6.4-8.2)
[2020-06-29 06:14] LABS: CARBON DIOXIDE 44.6 mmol/L (21-32)
[2020-06-30] VITALS (13 sets, daily range): BP systolic 99–141; BP diastolic 43–75
[2020-06-30 06:12] LABS: PLATELET COUNT 150 x10^3mcL (179-408)
[2020-06-30 06:24] LABS: CALCIUM 8.6 mg/dL (8.5-10.1); CARBON DIOXIDE 38.4 mmol/L (21-32); CHLORIDE SERUM 98 mmol/L (98-107); CREATININE SERUM 0.3 mg/dL (0.6-1.0); GFR1 > 60 mL/min; GLUCOSE SERUM 151 mg/dL (74-106); POTASSIUM SERUM 3.6 mmol/L (3.5-5.1); SODIUM SERUM 140 mmol/L (136-145)
[2020-06-30 06:39] LABS: BASOPHIL % 0 % (0.2-1.3); RED CELL DISTRIBUTION WIDTH 16.9 % (12.3-17.7)
[2020-07-01 05:30] VITALS: BP 131/75
[2020-07-01 06:07] VITALS: BP 139/73
[2020-07-01 07:39] LABS: BASOPHIL % 0.1 % (0.2-1.3); PLATELET COUNT 147 x10^3mcL (179-408)
[2020-07-01 07:48] VITALS: BP 134/72
[2020-07-01 07:51] LABS: RED CELL DISTRIBUTION WIDTH 17.2 % (12.3-17.7)
[2020-07-01 08:23] LABS: CALCIUM 8.7 mg/dL (8.5-10.1); CARBON DIOXIDE 33.3 mmol/L (21-32); CHLORIDE SERUM 99 mmol/L (98-107); CREATININE SERUM 0.3 mg/dL (0.6-1.0); GFR1 > 60 mL/min; GLUCOSE SERUM 134 mg/dL (74-106); MAGNESIUM 2.2 mg/dL (1.8-2.4); POTASSIUM SERUM 4.3 mmol/L (3.5-5.1); SODIUM SERUM 139 mmol/L (136-145)
[2020-07-01 13:09] VITALS: BP 127/61
[2020-07-01 16:30] VITALS: BP 143/76
[2020-07-01 21:19] VITALS: BP 146/69
[2020-07-02 05:52] VITALS: BP 158/52
[2020-07-02 06:20] LABS: BASOPHIL % 0.1 % (0.2-1.3); PLATELET COUNT 153 x10^3mcL (179-408)
[2020-07-02 06:58] LABS: CALCIUM 8.5 mg/dL (8.5-10.1); CARBON DIOXIDE 33.1 mmol/L (21-32); CHLORIDE SERUM 99 mmol/L (98-107); CREATININE SERUM 0.3 mg/dL (0.6-1.0); GFR1 > 60 mL/min; GLUCOSE SERUM 167 mg/dL (74-106); MAGNESIUM 2.1 mg/dL (1.8-2.4); POTASSIUM SERUM 4.1 mmol/L (3.5-5.1); SODIUM SERUM 138 mmol/L (136-145)
[2020-07-02 08:28] VITALS: BP 130/56
[2020-07-02 12:13] VITALS: BP 139/67
[2020-07-02 16:01] VITALS: BP 137/73
[2020-07-02 16:58] VITALS: BP 118/58
[2020-07-02 19:25] VITALS: BP 114/44
[2020-07-03 07:30] VITALS: BP 109/53
[2020-07-03 12:00] VITALS: BP 125/68
[2020-07-03 17:00] VITALS: BP 149/67
[2020-07-03 21:03] VITALS: BP 149/67
[2020-07-03 22:13] VITALS: BP 148/56
[2020-07-03 22:19] VITALS: BP 149/67
[2020-07-04] VITALS (7 sets, daily range): BP systolic 108–148; BP diastolic 42–62
[2020-07-04 01:25] LABS: CHLORIDE SERUM 98 mmol/L (98-107); GLUCOSE SERUM 153 mg/dL (74-106); POTASSIUM SERUM 3.8 mmol/L (3.5-5.1); SODIUM SERUM 136 mmol/L (136-145)
[2020-07-04 01:26] LABS: CALCIUM 8.5 mg/dL (8.5-10.1); CREATININE SERUM 0.3 mg/dL (0.6-1.0); GFR1 > 60 mL/min
[2020-07-04 01:27] LABS: CARBON DIOXIDE 40.7 mmol/L (21-32)
[2020-07-04 05:38] LABS: BASOPHIL % 0.2 % (0-2); PLATELET COUNT 139 x10^3mcL (130-400)
[2020-07-04 07:03] LABS: BASOPHIL % 0.1 % (0.2-1.3); PLATELET COUNT 163 x10^3mcL (179-408)
[2020-07-04 07:12] LABS: RED CELL DISTRIBUTION WIDTH 17.5 % (12.3-17.7)
[2020-07-04 07:50] LABS: CALCIUM 8.5 mg/dL (8.5-10.1); CHLORIDE SERUM 96 mmol/L (98-107); CREATININE SERUM 0.3 mg/dL (0.6-1.0); GFR1 > 60 mL/min; GLUCOSE SERUM 143 mg/dL (74-106); POTASSIUM SERUM 3.9 mmol/L (3.5-5.1); SODIUM SERUM 139 mmol/L (136-145)
[2020-07-04 07:57] LABS: CARBON DIOXIDE 40.2 mmol/L (21-32)
[2020-07-05 00:20] VITALS: BP 108/42
[2020-07-05 03:55] VITALS: BP 108/42
[2020-07-05 04:50] VITALS: BP 138/70
[2020-07-05 05:55] VITALS: BP 138/70
[2020-07-05 07:24] LABS: BASOPHIL % 0.2 % (0.2-1.3); PLATELET COUNT 234 x10^3mcL (179-408)
[2020-07-05 07:38] LABS: RED CELL DISTRIBUTION WIDTH 17.7 % (12.3-17.7)
[2020-07-05 08:06] LABS: CARBON DIOXIDE 38.9 mmol/L (21-32); CHLORIDE SERUM 94 mmol/L (98-107); CREATININE SERUM 0.3 mg/dL (0.6-1.0); GFR1 > 60 mL/min; GLUCOSE SERUM 181 mg/dL (74-106); POTASSIUM SERUM 3.9 mmol/L (3.5-5.1); SODIUM SERUM 137 mmol/L (136-145)
[2020-07-05 08:50] VITALS: BP 95/36
== END 2020-07-05 10:50 | DRG 130 ==
LOC: ED 12:00 → IC 15:32 → DU 15:32 → IC 06-11 16:48 → DU 06-30 22:57
PROVIDERS: Internal Medicine; Internal Medicine Pulmonary Disease; Specialist; ADMIT Internal Medicine; ATTEND Internal Medicine
PROC: 5A09357 Assistance with Respiratory Ventilation, Less than 24 Consecutive Hours, Continuous Positive Airway Pressure (ICD-10-PCS; 2020-06-09)
PROC: 0BH17EZ Insertion of Endotracheal Airway into Trachea, Via Natural or Artificial Opening (ICD-10-PCS; principal; 2020-06-11)
PROC: 5A1955Z Respiratory Ventilation, Greater than 96 Consecutive Hours (ICD-10-PCS; 2020-06-11)
PROC: 5A1955Z Respiratory Ventilation, Greater than 96 Consecutive Hours (ICD-10-PCS; 2020-06-23)
PROC: 30233N1 Transfusion of Nonautologous Red Blood Cells into Peripheral Vein, Percutaneous Approach (ICD-10-PCS; 2020-06-23)
DX: J96.21 Acute and chronic respiratory failure with hypoxia (principal); E43 Unspecified severe protein-calorie malnutrition; J15.5 Pneumonia due to Escherichia coli; R64 Cachexia; D84.9 Immunodeficiency, unspecified; K74.60 Unspecified cirrhosis of liver; E86.0 Dehydration; J96.22 Acute and chronic respiratory failure with hypercapnia; Z20.822 Contact with and (suspected) exposure to COVID-19; J44.0 Chronic obstructive pulmonary disease with (acute) lower respiratory infection; Z68.1 Body mass index [BMI] 19.9 or less, adult; Z93.1 Gastrostomy status
CPT/HCPCS: 36600; 82962; 83880; 85378; 87804; 90658; 90732; A4628; C9113; G0378; J0132; J0456; J0690; J0696; J1561; J1650; J1956; J2185; J2250; J2405; J2543; J2704; J2765; J2920; J3010; J3370; J3490; J3535; J7030; J7040; J7042; J7050; J7512; P9016; P9045; P9047; U0003